=== PATIENT | female | born 1950 | race Asian ===

== ENCOUNTER 2017-04-25 18:21 | Emergency (ER) | payer MEDICARE, OTHER ==
[2017-04-25 19:25] VITALS: BP 140/70
== END 2017-04-25 19:26 | disposition home or self-care (01) ==
LOC: ED 18:21
DX: L03.115 Cellulitis of right lower limb (principal); L03.113 Cellulitis of right upper limb

== ENCOUNTER 2017-07-22 18:12 | Emergency (ER) | payer MEDICARE ==
[~2017-07-22] VITALS: Ht 170.2 cm; Wt 62.6 kg
[2017-07-22 23:15] VITALS: BP 105/69
== END 2017-07-22 23:15 | disposition home or self-care (01) ==
LOC: ED 18:12
DX: T63.421A Toxic effect of venom of ants, accidental (unintentional), initial encounter (principal); L03.116 Cellulitis of left lower limb; Y92.007 Garden or yard of unspecified non-institutional (private) residence as the place of occurrence of the external cause